=== PATIENT | female | born 1990 | race African-American/Black ===

== ENCOUNTER 2019-10-28 12:45 | Emergency (ER) | payer MEDICAID, OTHER ==
[~2019-10-28] VITALS: Ht 167.6 cm; Wt 72.6 kg
[2019-10-28 16:46] VITALS: BP 128/71
== END 2019-10-28 17:01 | disposition home or self-care (01) ==
LOC: ER 12:45
DX: J06.9 Acute upper respiratory infection, unspecified (principal); J45.909 Unspecified asthma, uncomplicated

== ENCOUNTER 2019-10-30 09:03 | Emergency (ER) | payer MEDICAID ==
[~2019-10-30] VITALS: Ht 152.4 cm; Wt 72.6 kg
[2019-10-30 09:10] VITALS: BP 115/73
== END 2019-10-30 11:32 | disposition home or self-care (01) ==
LOC: ER 09:03
DX: H10.32 Unspecified acute conjunctivitis, left eye (principal); J45.909 Unspecified asthma, uncomplicated

== ENCOUNTER 2021-04-01 10:08 | Emergency (ER) | payer MEDICAID, OTHER ==
[~2021-04-01] VITALS: Ht 172.7 cm; Wt 127.0 kg
[2021-04-01 10:33] VITALS: BP 120/79
== END 2021-04-01 11:37 | disposition home or self-care (01) ==
LOC: ER 10:08
DX: S16.1XXA Strain of muscle, fascia and tendon at neck level, initial encounter (principal); S20.211A Contusion of right front wall of thorax, initial encounter; J45.909 Unspecified asthma, uncomplicated; V40.5XXA Car driver injured in collision with pedestrian or animal in traffic accident, initial encounter; Y93.89 Activity, other specified; Y92.410 Unspecified street and highway as the place of occurrence of the external cause; Y99.8 Other external cause status
CPT/HCPCS: 72040

== ENCOUNTER 2021-06-02 08:14 | Emergency (ER) | payer OTHER ==
[~2021-06-02] VITALS: Ht 167.6 cm; Wt 77.1 kg
[2021-06-02 08:35] VITALS: BP 113/77
[2021-06-02] MEDS ORDERED: DexAMETHasone SOD PHOS 10MG/1ML VIAL INJ IM ONE (09:00)
== END 2021-06-02 09:17 | disposition home or self-care (01) ==
LOC: ER 08:14
DX: J03.90 Acute tonsillitis, unspecified (principal); J45.909 Unspecified asthma, uncomplicated
CPT/HCPCS: J1100